=== PATIENT | male | born 1955 | race Caucasian/White ===

== ENCOUNTER → 2021-02-23 | Outpatient (CLI) | payer OTHER | LOC: KOH-I 14:43 | DX: T17.920A Food in respiratory tract, part unspecified causing asphyxiation, initial encounter (principal); M48.54XA Collapsed vertebra, not elsewhere classified, thoracic region, initial encounter for fracture | CPT/HCPCS: 71046 ==

== ENCOUNTER → 2021-05-09 | Day surgery (SDC) | payer OTHER ==
[~2021-05-09] VITALS: Ht 182.9 cm; Wt 133.8 kg
[~2021-05-09] MED LIST: ASPIRIN CHEWABL81 MG PO; DULOXETINE HCL20 MG PO; GABAPENTIN400 MG PO; GLIMEPIRIDE4 MG PO; GLUCOPHAGE XR500 M1 PO; GUAIFENESIN400 MG PO; HYDROCODONE-AC1 EAC1 PO; ISOSORBIDE MONO30 MG PO; LISINOPRIL40 MG PO; SIMVASTATIN80 MG PO
== END | disposition home or self-care (01) ==
LOC: OR 06:16
DX: Z12.11 Encounter for screening for malignant neoplasm of colon (principal); K57.30 Diverticulosis of large intestine without perforation or abscess without bleeding; I25.10 Atherosclerotic heart disease of native coronary artery without angina pectoris; I77.89 Other specified disorders of arteries and arterioles; E78.5 Hyperlipidemia, unspecified; E11.42 Type 2 diabetes mellitus with diabetic polyneuropathy; Z79.84 Long term (current) use of oral hypoglycemic drugs; Z20.822 Contact with and (suspected) exposure to COVID-19; I10 Essential (primary) hypertension; E66.01 Morbid (severe) obesity due to excess calories; G89.29 Other chronic pain
CPT/HCPCS: 82962; J2250; J2704; J7120

== ENCOUNTER 2021-08-31 10:48 | Emergency (ER) | payer OTHER ==
[~2021-08-31] VITALS: Ht 182.9 cm; Wt 141.1 kg
== END 2021-08-31 15:25 | disposition home or self-care (01) ==
LOC: ER1 10:48
DX: U07.1 COVID-19 (principal); Z23 Encounter for immunization; E11.9 Type 2 diabetes mellitus without complications; I10 Essential (primary) hypertension
CPT/HCPCS: 71045; 99283; M0243